=== PATIENT | female | born 1990 | race Caucasian/White ===

== ENCOUNTER 2018-08-05 15:30 | Inpatient (IN) | payer OTHER ==
[~2018-08-05] VITALS: Ht 152.4 cm; Wt 61.2 kg
[2018-08-27] MEDS ORDERED: IRON325 MG PO (08:04)
[2018-08-27] MEDS ORDERED: PRENATAL FORMU1 EAC1 PO (08:04)
== END 2018-08-29 13:58 | DRG 807 ==
LOC: LDR 08-27 06:02 → OB/GYN 08-27 15:15
PROC: 10E0XZZ Delivery of Products of Conception, External Approach (ICD-10-PCS; principal; 2018-08-27)
PROC: 0KQM0ZZ Repair Perineum Muscle, Open Approach (ICD-10-PCS; 2018-08-27)
PROC: 10907ZC Drainage of Amniotic Fluid, Therapeutic from Products of Conception, Via Natural or Artificial Opening (ICD-10-PCS; 2018-08-27)
PROC: 3E033VJ Introduction of Other Hormone into Peripheral Vein, Percutaneous Approach (ICD-10-PCS; 2018-08-27)
PROC: 4A1HXCZ Monitoring of Products of Conception, Cardiac Rate, External Approach (ICD-10-PCS; 2018-08-27)
DX: O70.1 Second degree perineal laceration during delivery (principal); Z37.0 Single live birth; Z3A.39 39 weeks gestation of pregnancy

== ENCOUNTER 2018-08-25 10:13 | Outpatient (CLI) | payer OTHER | END 2018-08-25 11:36 | disposition home or self-care (01) | LOC: NST 10:13 | DX: Z34.83 Encounter for supervision of other normal pregnancy, third trimester (principal) ==

== ENCOUNTER 2021-07-02 16:04 | Emergency (ER) | payer OTHER ==
[~2021-07-02] VITALS: Ht 152.4 cm; Wt 56.2 kg
[~2021-07-02 16:04] MED LIST: IRON325 MG PO; PRENATAL FORMU1 EAC1 PO
== END 2021-07-02 23:40 | disposition home or self-care (01) ==
LOC: ER 16:04
DX: N39.0 Urinary tract infection, site not specified (principal); K29.60 Other gastritis without bleeding